=== PATIENT | female | born 2000 | race Caucasian/White ===

== ENCOUNTER 2022-11-06 16:05 | Emergency (ER) | payer OTHER ==
--- NOTE | 2022-11-06 17:43 | RAD REPORT ---
EXAM DESCRIPTION: CT - CTFB CLINICAL HISTORY: TRAUMA COMPARISON: No comparisons TECHNIQUE: Axial 2 mm thick images of the face were obtained with sagittal and coronal reconstructio n images. All CT scans are performed using dose optimization technique as appropriate and may include automated exposure control or mA/KV adjustment according to patient size. FINDINGS: No acute facial bone fracture is seen.The mandible is intact. The globes and orbital contents are grossly unremarkable.The paranasal sinuses and mastoids are clear . IMPRESSION: Negative for facial bone fracture.
--- NOTE | 2022-11-06 17:51 | EDPHYS ---
Physician Documentation [facility] Name: Dorothy David Age: 22 yrs Sex: Female : 2000 Arrival Date: 11/06/2022 Time: 16:05 Bed IW2 Private MD: ED Physician Howie Chen HPI: 11/06 16:19 This 22 yrs old Female presents to ER via Ambulatory with complaints of Head Injury jh7 Without LOC-Adult. 16:19 The patient or guardian reports tenderness. The complaints affect the left cheek. jh7 Context of injury: The problem was sustained at work, resulted from a direct blow, metal pole. Onset: The symptoms/episode began/occurred acutely. Patient reports that she was winding up a machine and a metal pole hit her in the left cheek. Denies any LOC. Reports mild dizziness and nausea after the event but states that after she ate an apple she felt better.. Historical: - Allergies: 16:19 Augmentin; ll1 16:19 "sleep medicine"; ll1 16:19 Gluten Protein; ll1 16:19 Dairy Aid; ll1 16:19 Pineapple; ll1 - PMHx: 16:19 allergy related asthma; ll1 - PSHx: 16:19 wisdom teeth removed; ll1 - Immunization history:: Adult Immunizations up to date. - Social history:: Smoking status: Patient denies any tobacco usage or history of. ROS: 16:19 Constitutional: Negative for fever, chills, and weight loss, Eyes: Negative for injury, jh7 pain, redness, and discharge, Neck: Negative for injury, pain, and swelling, Cardiovascular: Negative for chest pain, palpitations, and edema, Respiratory: Negative for shortness of breath, cough, wheezing, and pleuritic chest pain, Back: Negative for injury and pain, MS/Extremity: Negative for injury and deformity, Neuro: Negative for headache, weakness, numbness, tingling, and seizure. 16:19 Skin: Positive for ecchymosis, of the left cheek. 16:19 All other systems are negative. Exam: 16:19 Constitutional: This is a well developed, well nourished patient who is awake, alert, jh7 and in no acute distress. Eyes: Pupils equal round and reactive to light, extra-ocular motions intact. Lids and lashes normal. Conjunctiva and sclera are non-icteric and not injected. Cornea within normal limits. Periorbital areas with no swelling, redness, or edema. ENT: Nares patent. No nasal discharge, no septal abnormalities noted. Tympanic membranes are normal and external auditory canals are clear. Oropharynx with no redness, swelling, or masses, exudates, or evidence of obstruction, uvula midline. Mucous membranes moist. Neck: Trachea midline, no thyromegaly or masses palpated, and no cervical lymphadenopathy. Supple, full range of motion without nuchal rigidity, or vertebral point tenderness. No Meningismus. Cardiovascular: Regular rate and rhythm with a normal S1 and S2. No gallops, murmurs, or rubs. Normal PMI, no JVD. No pulse deficits. Respiratory: Lungs have equal breath sounds bilaterally, clear to auscultation and percussion. No rales, rhonchi or wheezes noted. No increased work of breathing, no retractions or nasal flaring. Skin: Warm, dry with normal turgor. Normal color with no rashes, no lesions, and no evidence of cellulitis. MS/ Extremity: Pulses equal, no cyanosis. Neurovascular intact. Full, normal range of motion. Neuro: Awake and alert, GCS 15, oriented to person, place, time, and situation. Cranial nerves II-XII grossly intact. Motor strength 5/5 in all extremities. Sensory grossly intact. Cerebellar exam normal. Normal gait. 16:19 Head/face: Noted is contusion, of the left cheek. Vital Signs: 16:21 BP 134 / 91; Pulse 71; Resp 16; Temp 97.4; Pulse Ox 100% ; Weight 61.23 kg; Height 5 ll1 ft. 6 in. ; Pain 3/10; 18:54 BP 135 / 91; Pulse 70; Resp 16; Pain 3/10; ll1 16:21 Body Mass Index 21.79 (61.23 kg, 167.64 cm) ll1 16:21 Pain Scale: Adult ll1 18:54 Pain Scale: Adult ll1 Effie Coma Score: 17:55 Eye Response: spontaneous(4). Motor Response: obeys commands(6). Verbal Response: jh oriented(5). Total: 15. MDM: 16:11 Patient medically screened. [facility] 17:55 Data reviewed: vital signs, nurses notes, radiologic studies, CT scan. Counseling: I [facility] had a detailed discussion with the patient and/or guardian regarding: the historical points, exam findings, and any diagnostic results supporting the discharge/admit diagnosis, to return to the emergency department if symptoms worsen or persist or if there are any questions or concerns that arise at home. Special discussion: Based on the patient's history, exam and DX evaluation, there is no indication for emergent intervention or inpatient TX. It is understood by the patient/guardian that if the SXs persist or worsen they need to return immediately for re-evaluation. 11/06 16:26 Order name: CT Facial Bones W/O Con; Complete Time: 17:49 [facility] Administered Medications: No medications were administered Disposition Summary: 11/06/22 17:50 Discharge Ordered Location: Home [facility] Problem: new [facility] Symptoms: have improved [facility] Condition: Stable [facility] Diagnosis - Contusion of the face [facility] Followup: [facility] - With: Private Physician - When: 2 - 3 days - Reason: Recheck today's complaints Discharge Instructions: - Discharge Summary Sheet [facility] - Contusion [facility] - Facial or Scalp Contusion [facility] Forms: - Medication Reconciliation Form [facility] - Thank You Letter [facility] Signatures: Dispatcher [employer] Surekha Boyd RN RN ll1 Jory Lee FNP [employer] OPERATOR [facility]
--- NOTE | 2022-11-06 17:51 | ER ---
Nurse's Notes [facility] Name: Dorothy David Age: 22 yrs Sex: Female : 2000 Arrival Date: 11/06/2022 Time: 16:05 Bed IW2 Private MD: Diagnosis: Contusion of the face Presentation: 11/06 16:21 Chief complaint: Patient states: Accidentally hit L side of face with metal bar at 1410 ll1 today. No LOC. Has had dizziness and nausea, so she came to get checked out. Coronavirus screen: Client denies travel out of the [place] in the last 14 days. At this time, the client does not indicate any symptoms associated with coronavirus-19. Ebola Screen: Patient denies travel to an Ebola-affected area in the 21 days before illness onset. Initial Sepsis Screen: Does the patient meet any 2 criteria? No. Patient's initial sepsis screen is negative. Does the patient have a suspected source of infection? No. Patient's initial sepsis screen is negative. Risk Assessment: Do you want to hurt yourself or someone else? Patient reports no desire to harm self or others. Onset of symptoms was November 06, 2022. 16:21 Method Of Arrival: Ambulatory ll1 16:21 Acuity: PETE 4 ll1 Triage Assessment: 16:22 General: Appears uncomfortable, Behavior is calm, cooperative, appropriate for age. ll1 Pain: Complains of pain in L orbit Quality of pain is described as aching. Musculoskeletal: Circulation, motion, and sensation intact. Capillary refill < 3 seconds, Reports pain in L orbit. Historical: - Allergies: 16:19 Augmentin; ll1 16:19 "sleep medicine"; ll1 16:19 Gluten Protein; ll1 16:19 Dairy Aid; ll1 16:19 Pineapple; ll1 - PMHx: 16:19 allergy related asthma; ll1 - PSHx: 16:19 wisdom teeth removed; ll1 - Immunization history:: Adult Immunizations up to date. - Social history:: Smoking status: Patient denies any tobacco usage or history of. Screenin:55 [facility] ED Fall Risk Assessment (Adult) Score/Fall Risk Level 0 - 2 = Low Risk ll1 Oriented to surroundings, Maintained a safe environment, Educated pt \\T\\ family on fall prevention, incl call for assistance when getting out of bed, Hourly rounding (assess needs \\T\\ fall precautionary measures) done. Abuse screen: Denies threats or abuse. Nutritional screening: No deficits noted. Tuberculosis screening: No symptoms or risk factors identified. Primary Survey: 18:55 NO uncontrolled hemorrhage observed. A: The client is awake and alert. The airway is ll1 patent. Breathing/Chest: Spontaneous respiratory effort, equal unlabored respirations, breath sounds clear bilaterally, regular pattern, symmetrical chest rise and fall. Circulation: No external hemorrhage present. Regular and strong central pulse, skin warm/dry/normal color. Disability Client is alert. Exposure/Environment: There is no evidence of uncontrolled external bleeding. Assessment: 18:55 Reassessment: No changes from previously documented assessment. Patient and/or family ll1 updated on plan of care and expected duration. Pain level reassessed. Patient is alert, oriented x 3, equal unlabored respirations, skin warm/dry/pink. Vital Signs: 16:21 BP 134 / 91; Pulse 71; Resp 16; Temp 97.4; Pulse Ox 100% ; Weight 61.23 kg; Height 5 ll1 ft. 6 in. ; Pain 3/10; 18:54 BP 135 / 91; Pulse 70; Resp 16; Pain 3/10; ll1 16:21 Body Mass Index 21.79 (61.23 kg, 167.64 cm) ll1 16:21 Pain Scale: Adult ll1 18:54 Pain Scale: Adult ll1 Bobby Coma Score: 17:55 Eye Response: spontaneous(4). Motor Response: obeys commands(6). Verbal Response: jh7 oriented(5). Total: 15. ED Course: 16:06 Patient arrived in ED. rg4 16:10 [facility] jh7 16:10 Howie Chen MD is Attending Physician. jh7 16:23 Triage completed. ll1 16:23 Arm band placed on. ll1 17:20 CT Facial Bones W/O Con In Process Unspecified. EDMS Administered Medications: No medications were administered Outcome: 17:50 Discharge ordered by . jh7 18:55 Discharged to home ambulatory. ll1 18:55 Condition: stable 18:55 Discharge instructions given to patient, Instructed on discharge instructions, follow up and referral plans. Demonstrated understanding of instructions, follow-up care. 18:56 Patient left the ED. ll1 Signatures: Dispatcher [employer] Marj Arevalo rg4 Surekha Reed RN RN ll1 Jory Lee FNP FNP jh7
[2022-11-06 19:06] VITALS: TEMP 97.4; O2SAT 100
[2022-11-06 19:08] VITALS: BP 135/91
== END 2022-11-06 18:56 | disposition home or self-care (01) ==
LOC: ER 16:05
DX: S00.83XA Contusion of other part of head, initial encounter (principal); Z88.1 Allergy status to other antibiotic agents; Z91.011 Allergy to milk products; Z91.018 Allergy to other foods
CPT/HCPCS: 70486; 76377; 99283